=== PATIENT | female | born 1970 | race Caucasian/White ===

== ENCOUNTER 2022-09-02 19:49 | Observation (INO) | payer OTHER ==
[2022-09-02] MEDS ORDERED: Ketorolac Tromethamine 30 MG/ML VIAL IVP PRN (22:01)
[2022-09-02] MEDS ORDERED: Ondansetron PF 4 MG/2 ML Vial IVP PRN (22:11)
[2022-09-02] MEDS ORDERED: Ketorolac Tromethamine 30 MG/ML VIAL IVP SCH (22:15)
[2022-09-02 22:21] VITALS: BMI 37.7
[2022-09-02] MEDS: Lactated Ringer's 1,000 ML IV SCH (22:43)
[2022-09-02] MEDS: Morphine 4 MG/ML VIAL SLOW IVP PRN (22:43)
[2022-09-02 23:58] LABS: SARS-CoV-2 NAA Rapid Test Not Detected (NotDetected)
[2022-09-03] MEDS: metroNIDAZOLE 500 MG in Premix Bag 1 BAG IVPB SCH ×3 (05:23→20:52)
[2022-09-03] MEDS: Lactated Ringer's 1,000 ML IV SCH ×3 (05:24→21:45)
[2022-09-03] MEDS: Morphine 4 MG/ML VIAL SLOW IVP PRN (06:46)
[2022-09-03] MEDS ORDERED: Scopolamine 1.5 mg/72 hour Patch TD SCH (08:00)
[2022-09-03] MEDS ORDERED: Cefepime 2 GM in Sodium Chloride 0.9% 100 ML IVPB SCH (09:00)
[2022-09-03] MEDS ORDERED: Fentanyl 100 MCG/2 ML VIAL ONE ×2 (10:47→13:46)
[2022-09-03] MEDS ORDERED: Ondansetron PF 4 MG/2 ML Vial ONE ×3 (14:00→17:17)
[2022-09-03] MEDS ORDERED: Acetaminophen 650 MG Suppository PR SCH (14:15)
[2022-09-03] MEDS ORDERED: Midazolam HCl 2 mg/2 ml Vial ONE (14:28)
[2022-09-03] MEDS ORDERED: fentaNYL PF 100 MCG/2 ML SYRINGE ONE (14:29)
[2022-09-03] MEDS ORDERED: Bupivacaine HCl 0.5%/Epinephrine 1:200,000/PF 30 ml Vial ONE (14:48)
[2022-09-03] MEDS ORDERED: Promethazine HCl 25 MG/ML VIAL ONE (15:18)
[2022-09-03] MEDS ORDERED: Lidocaine 1% PF 5 ML VIAL ONE (15:45)
[2022-09-03] MEDS ORDERED: Dexamethasone 20 MG/5 ML VIAL ONE (15:45)
[2022-09-03] MEDS ORDERED: Rocuronium Bromide 10 MG/ML (10ML VIAL) ONE (15:45)
[2022-09-03] MEDS ORDERED: PROPOFOL 200 MG/20 ML VIAL ONE (15:45)
[2022-09-03] MEDS ORDERED: Succinylcholine Chloride 100 MG/5 ML SYRINGE FS ONE (15:45)
[2022-09-03] MEDS ORDERED: NEOSTIGMINE 3 MG/3 ML SYR 3 MG/3 ML SYRINGE ONE (15:45)
[2022-09-03] MEDS ORDERED: Glycopyrrolate 0.2 MG/ML 5 ML SYRINGE ONE (15:45)
[2022-09-03] MEDS ORDERED: Ibuprofen 600 MG TAB PO PRN (16:33)
[2022-09-03] MEDS ORDERED: Acetaminophen 500 MG TAB PO PRN (16:33)
[2022-09-03] MEDS ORDERED: Ketorolac Tromethamine 30 MG/ML VIAL IVP PRN (16:37)
[2022-09-03] MEDS ORDERED: Ondansetron HCl/PF 4 MG/2 ML Vial IVP PRN (16:37)
[2022-09-03] MEDS ORDERED: Labetalol HCl 100 MG/20 ML VIAL SLOW IVP PRN (16:37)
[2022-09-03] MEDS ORDERED: Promethazine HCl 25 MG/ML VIAL IM PRN (16:37)
[2022-09-03] MEDS ORDERED: Benzonatate 100 MG CAP PO PRN (16:43)
[2022-09-03] MEDS ORDERED: SUMAtriptan Succinate 50 MG TAB PO PRN (16:45)
[2022-09-03] MEDS ORDERED: Acetaminophen 500 MG TAB PO SCH (16:45)
[2022-09-03] MEDS ORDERED: Naloxone HCl 0.4 mg/ml Vial ONE (17:04)
[2022-09-03] MEDS ORDERED: Ketorolac Tromethamine 30 MG/ML VIAL ONE (17:17)
[2022-09-03] MEDS ORDERED: Benztropine Mesylate 2 MG/2 ML VIAL IVP SCH (18:00)
[2022-09-03] MEDS: metroNIDAZOLE 500 MG TAB PO SCH (20:59)
[2022-09-04] MEDS: traMADol HCl 50 MG TAB PO PRN ×2 (01:07→10:05)
[2022-09-04] MEDS: metroNIDAZOLE 500 MG in Premix Bag 1 BAG IVPB SCH (04:52)
[2022-09-04] MEDS: Lactated Ringer's 1,000 ML IV SCH (04:55)
[2022-09-04 08:03] VITALS: BP 116/67; TEMP 97.7
[2022-09-04] MEDS: metroNIDAZOLE 500 MG TAB PO SCH (08:44)
[2022-09-04] MEDS ORDERED: FLUoxetine HCl 10 MG CAP PO SCH (09:00)
[2022-09-04] MEDS ORDERED: Chlorthalidone 25 MG TAB PO SCH (09:00)
== END 2022-09-04 10:25 | disposition home or self-care (01) ==
LOC: SURG B 19:49
PROVIDERS: ADMIT Specialist; ATTEND Specialist
PROC: 0DTJ4ZZ Resection of Appendix, Percutaneous Endoscopic Approach (ICD-10-PCS; principal; 2022-09-03)
DX: K35.30 Acute appendicitis with localized peritonitis, without perforation or gangrene (principal); K38.8 Other specified diseases of appendix; I10 Essential (primary) hypertension; Z79.899 Other long term (current) drug therapy; Z88.0 Allergy status to penicillin; Z20.822 Contact with and (suspected) exposure to COVID-19
CPT/HCPCS: 88304; 93005; 93010; 96361; 96365; 96375; 96376; A4649; G0378; J0515; J0692; J1100; J1885; J2250; J2270; J2310; J2405; J2550; J2704; J3010; J3490; J7120; U0002